=== PATIENT | female | born 1990 | race Caucasian/White ===

== ENCOUNTER 2017-02-28 13:22 | Emergency (ER) | payer OTHER ==
[2017-02-28 13:57] VITALS: BP 118/62
--- NOTE | 2017-03-03 13:55 | UC ---
UC General HPI - HPI Summary HPI Summary: Patient presents with an unremarkable past medical history. She reports today that about two weeks ago she started to have intermittent headaches, that come on gradually, and are not worse headache of life. She also reports that while trying to have BM this morning she felt something "pulling" and reached down with tissue paper, and tried to pull out the stool and she felt something pull back and slip back up into her rectum. She denies fever, chills, abdominal pain , rectal pain, nausea, vomiting, or diarrhea, any mucous, blood, or puss. - History of Current Complaint Chief Complaint: UCGU Stated Complaint: STRANGE THINGS IN FECAL MATTER Time Seen by Provider: 02/28/17 15:05 Hx Obtained From: Patient Hx Last Menstrual Period: states IUD Onset/Duration: Sudden Onset, Lasting Minutes Pain Intensity: 0 - Allergy/Home Medications Allergies/Adverse Reactions: Allergies Allergy/AdvReac Type Severity Reaction Status Date / Time Penicillins Allergy Hives Verified 02/28/17 13:46 Home Medications: Home Medications Ibuprofen [Ibuprofen 200 MG] 200 mg PO PRN 02/28/17 [History] PMH/Surg Hx/FS Hx/Imm Hx Previously Healthy: Yes - Surgical History Surgical History: Yes Surgery Procedure, Year, and Place: 2010 - Family History Known Family History: Positive: None - Social History Occupation: Employed Full-time Lives: Alone Alcohol Use: Occasionally Substance Use Type: None Smoking Status (MU): Never Smoked Tobacco Review of Systems Constitutional: Negative Skin: Negative Eyes: Negative ENT: Negative Respiratory: Negative Cardiovascular: Negative Gastrointestinal: Negative Genitourinary: Negative Motor: Negative Neurovascular: Negative Musculoskeletal: Negative Neurological: Negative Psychological: Negative All Other Systems Reviewed And Are Negative: Yes Physical Exam Triage Information Reviewed: Yes Vital Signs: Initial Vital Signs Temp 98 F 02/28/17 13:47 Pulse 63 02/28/17 13:47 Resp 16 02/28/17 13:47 BP 118/62 02/28/17 13:47 Pulse Ox 100 02/28/17 13:47 Eye Exam: Normal ENT Exam: Normal Dental Exam: Normal Neck exam: Normal Neck: Positive: 1 Respiratory Exam: Normal Cardiovascular Exam: Normal Abdominal Exam: Normal Musculoskeletal Exam: Normal Neurological Exam: Normal Psychological Exam: Normal Skin Exam: Normal Course/Dx - Course Course Of Treatment: Patient was given supplies to obtain a stool sample as one could not be obtained during the visit, instructed to bring it back tomorrow. Discharged in stable condition. - Differential Dx - Multi-Symptom Differential Diagnoses: Other - abnormal bowel movement Provider Diagnoses: abnormal bowel movement Discharge - Discharge Plan Condition: Stable Disposition: HOME Referrals: No Primary Care Phys,NOPCP [Primary Care Provider] - Additional Instructions: Patient will obtain a stool specimen and bring it back tomorrow.
--- NOTE | 2017-03-03 16:57 | ED ---
Progress - Progress Note Progress Note: selina Connell selina katharine Ljj 03/03/17 Course/Dx - Course Course Of Treatment: Patient was given supplies to obtain a stool sample as one could not be obtained during the visit, instructed to bring it back tomorrow. Discharged in stable condition. - Diagnoses Provider Diagnoses: Diarrhea
--- NOTE | 2017-03-04 17:01 | UC ---
Progress - Progress Note Progress Note: selina Patton Ljj 03/03/17 03/04/17 4.59 PM - (+) FOR PARASITE DIPHYLLOBOTHRIUM (USUALLY FROM UNCOOKED FISH ). MEDICATION PRAZIQUANTEL. IF PATIENT NOT BETTER THEN ER OR CAN CALL IN MEDICATION (NOT SURE IF PHARMACY CARRIES IT).
--- NOTE | 2017-03-04 18:42 | UC ---
Progress - Progress Note Progress Note: selina Patton Ljj 03/03/17 03/04/17 4.59 PM - (+) FOR PARASITE DIPHYLLOBOTHRIUM (USUALLY FROM UNCOOKED FISH ). MEDICATION PRAZIQUANTEL. IF PATIENT NOT BETTER THEN ER OR CAN CALL IN MEDICATION (NOT SURE IF PHARMACY CARRIES IT). 03/04/17 6.41 pm PRAZIQUANTEL 600 MG ORDERED.
== END 2017-02-28 15:25 | disposition home or self-care (01) ==
LOC: UCEAST 13:22
DX: R19.7 Diarrhea, unspecified (principal); R51 Headache; Z88.0 Allergy status to penicillin
CPT/HCPCS: 87177; 87209; 87328; 87329; 99201; G0463